=== PATIENT | female | born 1950 | race Caucasian/White ===

== ENCOUNTER 2016-09-18 05:49 | Day surgery (SDC) | payer OTHER ==
[~2016-09-18] VITALS: Ht 152.4 cm; Wt 84.8 kg
[2016-09-18] MEDS ORDERED: LOSARTAN POTASS50 MG PO (07:03)
[2016-09-18] MEDS ORDERED: OMEPRAZOLE40 MG PO (07:05)
[2016-09-18] MEDS ORDERED: CLINDAMYCIN 600 MG in DEXTROSE 5% 50 ML IV SCH (07:08)
[2016-09-18] MEDS ORDERED: BUPIVACAINE-MPF/EPI 0.25% 30 ML VIAL INJ ONE (07:40)
[2016-09-18] MEDS ORDERED: PHENYLEPHRINE 10 MG/ML VIAL IV ONE (08:00)
[2016-09-18] MEDS ORDERED: GLYCOPYRROLATE 0.2 MG/ML VIAL IV ONE (08:00)
[2016-09-18] MEDS ORDERED: ONDANSETRON 4 MG/2 ML VIAL IVP ONE (08:00)
[2016-09-18] MEDS ORDERED: DEXAMETHASONE 4 MG/ML VIAL IVP ONE (08:00)
[2016-09-18] MEDS ORDERED: DESFLURANE 240 ML BTL INH ONE (08:00)
[2016-09-18] MEDS ORDERED: KETOROLAC 15 MG/ML VIAL IVP ONE (08:00)
[2016-09-18] MEDS ORDERED: PROPOFOL 200 MG/20 ML VIAL IV ONE (08:00)
[2016-09-18] MEDS ORDERED: ROCURONIUM 50 MG/5 ML VIAL IV ONE (08:00)
[2016-09-18] MEDS ORDERED: fentaNYL 0.05 MG/ML VIAL ONE (08:02)
[2016-09-18] MEDS ORDERED: HYDROmorphone PFS 2 MG/ML SYR ONE (08:02)
[2016-09-18] MEDS ORDERED: ONDANSETRON 4 MG/2 ML VIAL IVP PRN (08:30)
[2016-09-18] MEDS ORDERED: HYDROmorphone 1 MG/ML AMP IVP PRN ×2 (08:30→09:00)
[2016-09-18] MEDS ORDERED: NACL 0.9% 1,000 ML IV SCH (08:57)
[2016-09-18] MEDS ORDERED: ONDANSETRON 4 MG/2 ML VIAL IV PRN (09:00)
[2016-09-18] MEDS ORDERED: MORPHINE SULFATE 2 MG/ML SYR IVP PRN (09:00)
[2016-09-18] MEDS ORDERED: ACETAMINOPHEN 325 MG TAB PO PRN (09:00)
[2016-09-18] MEDS ORDERED: MORPHINE SULFATE 4 MG/ML SYR IV PRN (09:00)
[2016-09-18] MEDS ORDERED: HYDROcodone/APAP 5/325 MG 1 TAB TAB PO PRN (09:00)
== END 2016-09-18 12:35 | disposition home or self-care (01) ==
LOC: MDS 05:49 → MMU 06:03 → MDS 12:35
PROVIDERS: ATTEND Surgery
DX: K80.10 Calculus of gallbladder with chronic cholecystitis without obstruction (principal); I10 Essential (primary) hypertension; E66.9 Obesity, unspecified; K21.9 Gastro-esophageal reflux disease without esophagitis; M19.90 Unspecified osteoarthritis, unspecified site; Z90.710 Acquired absence of both cervix and uterus
CPT/HCPCS: 47562; 71010; 82374; 86886; 86900; 86901; 93005; C1887; J1100; J1170; J1885; J2370; J2405; J2704; J3010; J3490; J7030; J7060; J7120

== ENCOUNTER 2017-01-02 21:22 | Emergency (ER) | payer OTHER ==
[~2017-01-02] VITALS: Ht 142.2 cm; Wt 84.4 kg
[~2017-01-02 21:22] MED LIST: LOSA50TA39 PO; OMEP40EC14 PO
[2017-01-02 21:30] VITALS: BP 209/109
[2017-01-02 22:27] LABS: BASOPHILS # (AUTO) 0.1 K/uL (0.00-0.22); BASOPHILS % (AUTO) 0.9 % (0.0-2.0); EOSINOPHILS # (AUTO) 0.2 K/uL (0-0.4); EOSINOPHILS % (AUTO) 2.8 % (0.0-4.0); HEMATOCRIT 37.3 % (36-48); HEMOGLOBIN 12.2 g/dL (12.0-16.0); LYMPHOCYTES # (AUTO) 1.5 K/uL (2.5-16.5); LYMPHOCYTES % (AUTO) 26.3 % (20.5-51.1); MEAN CORPUSCULAR HEMOGLOBIN 29 pg (27-31); MEAN CORPUSCULAR HGB CONC 33 g/dL (33-37); MEAN CORPUSCULAR VOLUME 88 fL (80-94); MONOCYTES # (AUTO) 0.5 K/uL (0.8-1.0); MONOCYTES % (AUTO) 8.5 % (1.7-9.3); NEUTROPHILS # (AUTO) 3.5 K/uL (1.8-7.7); NEUTROPHILS % (AUTO) 61.5 % (42.2-75.2); PLATELET COUNT (AUTO) 199 K/uL (140-450); RED BLOOD CELL COUNT(AUTO) 4.26 MIL/uL (4.20-5.40); RED CELL DISTRIBUTION WIDTH 12.1 % (11.6-13.7); WHITE BLOOD COUNT (AUTO) 5.8 K/uL (4.8-10.8)
[2017-01-02] MEDS: MORPHINE SULFATE 2 MG/ML SYR IVP ONE (22:45)
[2017-01-02] MEDS: ONDANSETRON 4 MG/2 ML VIAL IVP ONE (22:45)
[2017-01-02 22:49] LABS: ALBUMIN 3.5 g/dL (3.4-5.0); ANION GAP 9.1 (8-16); CALCIUM 9.1 mg/dL (8.5-10.1); CARBON DIOXIDE 31.9 mmol/L (21-32); CREATININE 0.8 mg/dL (0.6-1.3); INR 1.1 (0.8-1.2); PROTHROMBIN TIME 10.4 secs (10.8-13.4); TOTAL BILIRUBIN 0.4 mg/dL (0.0-1.0); TOTAL PROTEIN, SERUM 6.9 g/dL (6.4-8.2)
[2017-01-03] VITALS: BP 137/65
== END 2017-01-03 | disposition home or self-care (01) ==
LOC: MED 21:22
DX: R51 Headache (principal); I10 Essential (primary) hypertension; E78.00 Pure hypercholesterolemia, unspecified
CPT/HCPCS: 36415; 70450; 71010; 80053; 83880; 84484; 85025; 85610; 85730; 93005; 96374; 96375; 99285; J2270; J2405; Q0092